=== PATIENT | male | born 1945 | race Caucasian/White ===

== ENCOUNTER 2017-02-19 09:31 | Outpatient (CLI) | payer BC ==
[2017-02-19 10:46] LABS: #Basophils 0.1 thou/uL (0.0-0.2); #Eosinphils 0.3 thou/uL (0.0-0.7); #Lymphocytes 1.8 thou/uL (1.20-3.40); #Monocytes 0.9 thou/uL (0.11-0.59); #Neutrophils 7.1 thou/uL (1.40-6.50); %Basophils 0.9 % (0.0-1.0); %Eosinophils 2.6 % (0.0-10.0); %Lymphocytes 17.5 % (21.0-51.0); %Monocytes 8.7 % (0.0-10.0); Mean Platelet Volume 6.4 fL (7.4-10.4); White Blood Cell (WBC) Count 10.1 thou/uL (4.8-10.8)
[2017-02-19 11:11] LABS: Anion Gap 10 mmol/L (10-20); BUN (Urea Nitrogen) 6 mg/dL (8.4-25.7); Calc. Creatinine Clearance 0 mL/min (70-130); Calcium 9.5 mg/dL (7.8-10.44); Carbon Dioxide 31 mmol/L (23-31); Chloride 95 mmol/L (98-107); Estimated GFR-MDRD Greater than 90
== END 2017-02-19 09:32 | disposition home or self-care (01) ==
LOC: LABBT 09:31
PROVIDERS: ATTEND Orthopaedic Surgery
DX: Z01.818 Encounter for other preprocedural examination (principal)
CPT/HCPCS: 80048; 85025; 93005; 93010

== ENCOUNTER 2017-02-22 06:49 | Day surgery (SDC) | payer BC ==
[2017-02-19 09:49] VITALS: BMI 25.5
[2017-02-22] MEDS ORDERED: Diprivan 20 ML ONE (08:04)
[2017-02-22] MEDS ORDERED: Clindamycin/D5W 900 mg/50 ml Premix Bag ONE (08:41)
[2017-02-22] MEDS ORDERED: Clindamycin/D5W 600 mg/50 ml Premix Bag ONE (08:43)
[2017-02-22] MEDS ORDERED: Ondansetron HCl/PF 4 MG/2 ML Vial ONE (15:25)
[2017-02-22] MEDS ORDERED: Propofol 200 MG/20 ML VIAL ONE (15:25)
[2017-02-22] MEDS ORDERED: Dexamethasone 20 MG/5 ML VIAL ONE (15:25)
[2017-02-22] MEDS ORDERED: Ketorolac Tromethamine 30 MG/ML VIAL ONE (15:25)
[2017-02-22] MEDS ORDERED: Bupivacaine HCl 0.5%/Epinephrine 1:200,000/PF 30 ml Vial ONE (15:55)
[2017-02-22] MEDS ORDERED: Bupivacaine PF 0.5% 30 ML VIAL ONE (15:55)
--- NOTE | 2017-02-25 10:43 | OP ---
PREOPERATIVE DIAGNOSIS: Medial meniscus tear, right knee. POSTOPERATIVE DIAGNOSIS: Medial meniscus tear, right knee. SURGEON: Karthik Zapien M.D. ANESTHESIA: General. ESTIMATED BLOOD LOSS: Minimal. SPECIMEN: None. DRAINS: None. COMPLICATIONS: None. TOURNIQUET: Not used. Scope was placed in the lateral portal and probe was placed in the medial portal. Patellofemoral arnoldo nt was free of disease. Medial meniscus had a complex tear that was debrided using basket forceps an d smoothed using a 4-0 full radius resector. The lateral meniscus was intact. The ACL was intact. The knee was then drained. Sterile dressings applied.
== END 2017-02-22 12:08 | disposition home or self-care (01) ==
LOC: SDC 06:49
PROVIDERS: ATTEND Orthopaedic Surgery
PROC: 0SBC4ZZ Excision of Right Knee Joint, Percutaneous Endoscopic Approach (ICD-10-PCS; principal; 2017-02-22)
DX: S83.231A Complex tear of medial meniscus, current injury, right knee, initial encounter (principal); E05.00 Thyrotoxicosis with diffuse goiter without thyrotoxic crisis or storm; E03.9 Hypothyroidism, unspecified; Z79.82 Long term (current) use of aspirin; Z79.899 Other long term (current) drug therapy; Z88.0 Allergy status to penicillin; Z88.8 Allergy status to other drugs, medicaments and biological substances; Z95.0 Presence of cardiac pacemaker; Z90.89 Acquired absence of other organs; Z98.890 Other specified postprocedural states; Z87.891 Personal history of nicotine dependence
CPT/HCPCS: G8978-GP-CI; G8979-GP-CI; G8980-GP-CI; J0670; J1100; J1885; J2405; J2704; J3490; S0020

== ENCOUNTER 2018-10-14 09:34 | Outpatient (CLI) | payer BC ==
--- NOTE | 2018-10-14 10:15 | RAD ---
PA AND LATERAL VIEWS CHEST: Date: 10/14/18 HISTORY: Shortness of breath. FINDINGS: Comparison made with exam of 11/25/07. The heart size is normal. The aorta is tortuous. 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 The lungs are expanded without lobar consol idation, pneumothoraces, or pleural effusions. There are degenerative changes in the spine. IMPRESSION: No acute process. POS: TPC
== END 2018-10-14 09:35 | disposition home or self-care (01) ==
LOC: SCSRAD 09:34
PROVIDERS: ATTEND Family Medicine
DX: R06.02 Shortness of breath (principal)
CPT/HCPCS: 71046

== ENCOUNTER 2019-09-22 12:01 | Outpatient (CLI) | payer BC ==
--- NOTE | 2019-09-22 13:14 | RAD ---
2 VIEW CHEST: Date: 09/22/2019 HISTORY: Dyspnea. COMPARISON: 10/14/2018. FINDINGS: Lung gomez appear clear of infiltrate. Heart and mediastinum unremarkable. Pacemaker leads are uncha nged. Vascular markings upper normal and stable. Osseous structures unremarkable with degenerative sp ine changes which appear stable. Mild flattening of the hemidiaphragms suggest COPD. IMPRESSION: No acute process or significant interval change. POS: AH
== END 2019-09-22 12:02 | disposition home or self-care (01) ==
LOC: BICRAD 12:01
PROVIDERS: ATTEND Internal Medicine Critical Care Medicine
DX: R06.00 Dyspnea, unspecified (principal)
CPT/HCPCS: 71046

== ENCOUNTER 2022-01-11 12:02 | Outpatient (CLI) | payer BC, MEDICARE | END 2022-01-11 12:03 | disposition home or self-care (01) | LOC: SCSRAD 12:02 | PROVIDERS: ATTEND Family Medicine | DX: R07.81 Pleurodynia (principal) ==

== ENCOUNTER 2022-03-07 08:33 | Outpatient (CLI) | payer BC, MEDICARE | END 2022-03-07 08:34 | disposition home or self-care (01) | LOC: RAD 08:33 | PROVIDERS: ATTEND Internal Medicine Critical Care Medicine | DX: R06.00 Dyspnea, unspecified (principal); R91.1 Solitary pulmonary nodule | CPT/HCPCS: 71046 ==

== ENCOUNTER 2022-04-04 17:30 | Outpatient (CLI) | payer BC | END 2022-04-04 17:31 | disposition home or self-care (01) | LOC: SLEEPLAB 17:30 | PROVIDERS: ATTEND Internal Medicine Critical Care Medicine | DX: G47.33 Obstructive sleep apnea (adult) (pediatric) (principal); R09.02 Hypoxemia | CPT/HCPCS: 95800 ==

== ENCOUNTER 2024-01-28 11:39 | Outpatient (CLI) | payer BC | END 2024-01-28 11:40 | disposition home or self-care (01) | LOC: SCSRAD 11:39 | PROVIDERS: ATTEND Nurse Practitioner Family | DX: S89.92XA Unspecified injury of left lower leg, initial encounter (principal); S82.042A Displaced comminuted fracture of left patella, initial encounter for closed fracture; M25.462 Effusion, left knee ==

== ENCOUNTER 2024-11-17 09:57 | Outpatient (CLI) | payer BC, MEDICARE | END 2024-11-17 09:58 | disposition home or self-care (01) | LOC: RAD 09:57 | PROVIDERS: ATTEND Internal Medicine Critical Care Medicine | DX: R06.00 Dyspnea, unspecified (principal) | CPT/HCPCS: 71046 ==

== ENCOUNTER 2025-03-03 08:44 | Outpatient (CLI) | payer MEDICARE | END 2025-03-03 08:45 | disposition home or self-care (01) | LOC: RAD 08:44 | PROVIDERS: ATTEND Internal Medicine Critical Care Medicine | DX: R06.00 Dyspnea, unspecified (principal) | CPT/HCPCS: 71046 ==